=== PATIENT | female | born 1995 | race Caucasian/White ===

== ENCOUNTER 2018-05-05 02:05 | Inpatient (IN) | payer OTHER ==
[2018-05-05] VITALS (22 sets, daily range): BP systolic 90–152; BP diastolic 52–95
[~2018-05-05] VITALS: Ht 165.1 cm; Wt 60.0 kg
[2018-05-05] MEDS ORDERED: [UNRECOGNIZED DRUG - OTHER] IV ONE (02:10)
[2018-05-05] MEDS ORDERED: NORMAL SALINE IV ONE (02:10)
[2018-05-05] MEDS ORDERED: propofol 1000mg/100ml bottle 100 ML IV PRN (02:12)
[2018-05-05 02:31] LABS: ABG BASE EXCESS -5.6 mmol/L (-2.0-3.0); ABG HCO3 19.4 mmol/L (22.0-26.0); ABG OXYGEN SATURATION 99.2 % (95-98); ABG PCO2 (T) 36.9 mmHg (32.0-45.0); ABG PH (T) 7.341 (7.350-7.450); ABG PO2 (T) 223.6 mmHg (83-108); FCOHb 0.7 % (0.5-1.5); FMetHb 0.2 % (0.3-1.12); FO2Hb 98.3 % (94-100); MINUTE VOLUME 9 L/min; PATIENT TEMPERATURE 37.1; PEEP 5 cm H2O; RESPIRATORY RATE 18 b/min; RESPIRATORY RATE (OBSERVED) 20 b/min; TIDAL VOLUME 450 mL; TOTAL HEMOGLOBIN 13.9 G/dl (12.0-16.0)
[2018-05-05] MEDS ORDERED: normal saline 1000ml 1,000 ML IV SCH (02:42)
[2018-05-05] MEDS ORDERED: acetaminophen 325mg tablet PO PRN ×2 (02:45)
[2018-05-05] MEDS ORDERED: potassium Cl 40MEQ/NS 500ml 500 ML IV PRN ×2 (02:45)
[2018-05-05] MEDS ORDERED: morphine 4 MG/ML inj SYRINge IV PRN ×2 (02:45)
[2018-05-05] MEDS ORDERED: potassium Cl 20 mEq SR tablet PO PRN ×2 (02:45)
[2018-05-05] MEDS ORDERED: ipratropium/albuterol 3ml nebule NEB PRN (02:45)
[2018-05-05] MEDS ORDERED: magnesium hydroxide 30ml (MOM) UD suspension PO PRN (02:45)
[2018-05-05] MEDS ORDERED: ondansetron/PF 4mg/2ml inj IV PRN (02:45)
[2018-05-05] MEDS ORDERED: VECuronium br 10mg inj. IV ONE ×4 (02:55→03:15)
[2018-05-05] MEDS ORDERED: UNABLE TO OBTAIN (03:01)
[2018-05-05 03:21] LABS: TRIGLYCERIDES 79 MG/DL (20-135)
[2018-05-05] MEDS: FENTANYL-0.9 % NACL/PF 100 ML IV PRN ×2 (04:01→17:34)
[2018-05-05] MEDS: midazolam 100mg in NS 100ml 100 ML IV PRN ×3 (04:02→23:15)
[2018-05-05] MEDS ORDERED: propofol 1000mg/100ml bottle 100 ML IV ONE ×4 (04:03→22:29)
[2018-05-05] MEDS: propofol 1000mg/100ml bottle 100 ML IV PRN (04:04)
[2018-05-05 04:06] LABS: ABG BASE EXCESS -6.2 mmol/L (-2.0-3.0); ABG HCO3 18.4 mmol/L (22.0-26.0); ABG OXYGEN SATURATION 97.5 % (95-98); ABG PH (T) 7.352 (7.350-7.450); ABG PO2 (T) 103.3 mmHg (83-108); ALLEN'S TEST Positive; FCOHb 0.2 % (0.5-1.5); FMetHb 0.2 % (0.3-1.12); FO2Hb 97.1 % (94-100); MINUTE VOLUME 9 L/min; PATIENT TEMPERATURE 37.1; PEEP 5 cm H2O; RESPIRATORY RATE 18 b/min; RESPIRATORY RATE (OBSERVED) 20 b/min; TIDAL VOLUME 450 mL
[2018-05-05] MEDS: levoFLOXACIN-Levaquin 750MG/D5 150 ML IV SCH (04:11)
[2018-05-05] MEDS: K, MAG and/or Phos replacement - Verify level? MC SCH ×2 (04:21→06:48)
[2018-05-05 06:01] LABS: BASOPHILS % (AUTO) 0.1 % (0-1); EOSINOPHILS # (AUTO) 0.2 X10'3 (0-0.9); HEMATOCRIT 39.2 % (35.0-45.0); HEMOGLOBIN 13.4 g/dl (12.0-16.0); LYMPHOCYTES # (AUTO) 2.5 X10'3 (1.1-4.8); LYMPHOCYTES % (AUTO) 11.2 % (21-51); MEAN CORPUSCULAR HEMOGLOBIN 29.8 PG (27.0-31.0); MEAN CORPUSCULAR HGB CONC 34.2 % (33.0-36.5); MEAN PLATELET VOLUME 10.3 FL (7.4-10.4); MONOCYTES # (AUTO) 1.3 X10'3 (0-0.9); MONOCYTES % (AUTO) 5.9 % (2-12); NEUTROPHILS # (AUTO) 18.3 X10'3 (1.8-7.7); NEUTROPHILS % (AUTO) 81.8 % (42-75); PLATELET COUNT 203 X10'3 (140-440); RED BLOOD COUNT 4.51 X10'6 (4.20-5.60); RED CELL DISTRIBUTION WIDTH 13.4 % (11.5-14.5); WHITE BLOOD COUNT 22.4 X10'3 (4.5-11.0)
[2018-05-05 06:09] LABS: INR 1.1 INR; PARTIAL THROMBOPLASTIN TIME 22 SECONDS (22-32); PROTHROMBIN TIME 11.5 SECONDS (9.0-12.0)
[2018-05-05 06:20] LABS: ALANINE AMINOTRANSFERASE 29 U/L (12-78); ALBUMIN 3.6 G/DL (3.4-5.0); ALKALINE PHOSPHATASE 117 IU/L (46-116); ANION GAP 15 (8-16); ASPARTATE AMINO TRANSFERASE 35 U/L (10-37); BILIRUBIN,TOTAL 0.3 MG/DL (0.1-1.0); BLOOD UREA NITROGEN 16 MG/DL (7-18); BUN/CREATININE RATIO 14.3 (6.6-38.0); CALCIUM 8.5 MG/DL (8.5-10.1); CHLORIDE 113 MMOL/L (99-107); CREATININE 1.12 MG/DL (0.40-0.90); GLUCOSE 102 MG/DL (70-104); MAGNESIUM 1.9 MG/DL (1.5-2.4); PHOSPHORUS 4.3 MG/DL (2.3-4.5); POTASSIUM 3.9 MMOL/L (3.5-5.1); SODIUM 145 MMOL/L (135-145); TOTAL CARBON DIOXIDE 17.5 MMOL/L (24-32); TOTAL PROTEIN 7.1 G/DL (6.4-8.2); eGFR 60 ML/MIN
[2018-05-05] MEDS: Potassium Cl inj 40 MEQ in dextrose 5%-water 980 ML IV SCH ×2 (11:32→12:33)
[2018-05-05] MEDS: pantoprazole 40 MG vial IV SCH (11:35)
[2018-05-05] MEDS: enoxaparin 40mg/0.4ml syringe SQ SCH (11:36)
[2018-05-05 13:38] LABS: CREATINE KINASE 9386 U/L (26-192)
[2018-05-06] VITALS (18 sets, daily range): BP systolic 82–112; BP diastolic 47–70
[2018-05-06] MEDS: Potassium Cl inj 40 MEQ in dextrose 5%-water 980 ML IV SCH ×4 (00:34→20:34)
[2018-05-06] MEDS: FENTANYL-0.9 % NACL/PF 100 ML IV PRN (02:49)
[2018-05-06 04:26] LABS: ABG BASE EXCESS -4.6 mmol/L (-2.0-3.0); ABG HCO3 18.2 mmol/L (22.0-26.0); ABG OXYGEN SATURATION 95.8 % (95-98); ABG PCO2 (T) 27.6 mmHg (32.0-45.0); ABG PH (T) 7.438 (7.350-7.450); ALLEN'S TEST Positive; FCOHb 0.3 % (0.5-1.5); FMetHb 0.1 % (0.3-1.12); FO2Hb 95.4 % (94-100); MINUTE VOLUME 10 L/min; PEEP 5 cm H2O; RESPIRATORY RATE 18 b/min; RESPIRATORY RATE (OBSERVED) 21 b/min; TIDAL VOLUME 450 mL; TOTAL HEMOGLOBIN 12.3 G/dl (12.0-16.0)
[2018-05-06 04:59] LABS: BASOPHILS % (AUTO) 0.3 % (0-1); EOSINOPHILS # (AUTO) 0.2 X10'3 (0-0.9); EOSINOPHILS % (AUTO) 1.5 % (0-6); HEMATOCRIT 35.4 % (35.0-45.0); HEMOGLOBIN 11.8 g/dl (12.0-16.0); LYMPHOCYTES % (AUTO) 25.3 % (21-51); MEAN CORPUSCULAR HEMOGLOBIN 29.3 PG (27.0-31.0); MEAN CORPUSCULAR HGB CONC 33.3 % (33.0-36.5); MONOCYTES # (AUTO) 0.8 X10'3 (0-0.9); MONOCYTES % (AUTO) 6.6 % (2-12); NEUTROPHILS # (AUTO) 7.9 X10'3 (1.8-7.7); NEUTROPHILS % (AUTO) 66.3 % (42-75); PLATELET COUNT 159 X10'3 (140-440); RED BLOOD COUNT 4.02 X10'6 (4.20-5.60); WHITE BLOOD COUNT 11.9 X10'3 (4.5-11.0)
[2018-05-06 05:04] LABS: ALANINE AMINOTRANSFERASE 45 U/L (12-78); ALBUMIN 2.9 G/DL (3.4-5.0); ALBUMIN/GLOBULIN RATIO 0.9 (1.1-1.5); ALKALINE PHOSPHATASE 94 IU/L (46-116); ANION GAP 6 (8-16); ASPARTATE AMINO TRANSFERASE 84 U/L (10-37); BILIRUBIN,TOTAL 0.5 MG/DL (0.1-1.0); BLOOD UREA NITROGEN 10 MG/DL (7-18); CALCIUM 8.5 MG/DL (8.5-10.1); CHLORIDE 109 MMOL/L (99-107); CREATININE 0.77 MG/DL (0.40-0.90); GLUCOSE 88 MG/DL (70-104); MAGNESIUM 1.9 MG/DL (1.5-2.4); PHOSPHORUS 2.6 MG/DL (2.3-4.5); POTASSIUM 4.5 MMOL/L (3.5-5.1); SODIUM 137 MMOL/L (135-145); TOTAL CARBON DIOXIDE 21.6 MMOL/L (24-32); eGFR > 90 ML/MIN
[2018-05-06] MEDS: midazolam 100mg in NS 100ml 100 ML IV PRN (06:21)
[2018-05-06] MEDS: K, MAG and/or Phos replacement - Verify level? MC SCH (08:00)
[2018-05-06] MEDS ORDERED: mineral oil/petrolatum ophthal oint EACHEYE SCH (08:00)
[2018-05-06] MEDS: enoxaparin 40mg/0.4ml syringe SQ SCH (08:34)
[2018-05-06] MEDS: pantoprazole 40 MG vial IV SCH (08:34)
[2018-05-06] MEDS: levoFLOXACIN-Levaquin 750MG/D5 150 ML IV SCH (08:35)
[2018-05-06] MEDS: ziprasidone IM 20mg inj **IM only IM SCH (09:32)
[2018-05-06] MEDS: propofol 1000mg/100ml bottle 100 ML IV PRN (09:44)
[2018-05-06] MEDS ORDERED: dexmedetomidin/NS 400mcg/100ml 100 ML IV SCH (11:10)
[2018-05-06] MEDS: QUEtiapine 25mg tablet PO SCH ×2 (11:22→20:00)
[2018-05-06] MEDS ORDERED: diphenhydrAMINE 50 mg/ml inj IM ONE (22:20)
[2018-05-06] MEDS ORDERED: LORazepam 2 mg/ml vial IM ONE (22:20)
[2018-05-06] MEDS ORDERED: OLANZapine **IM** 10 mg inj. IM PRN (22:25)
[2018-05-06] MEDS ORDERED: ondansetron 4mg rapidly disintigrating tab PO PRN ×2 (22:50→22:55)
[2018-05-07] MEDS ORDERED: LORazepam 2 mg/ml vial ONE ×2 (01:03→01:17)
[2018-05-07] MEDS: chlorproMAZINE 25mg/ml inj. IV ONE ×2 (01:35→01:46)
[2018-05-07] MEDS ORDERED: LORazepam 2 mg/ml vial IV ONE (01:35)
[2018-05-07] MEDS ORDERED: LORazepam 2 mg/ml vial IM ONE (01:35)
[2018-05-07] MEDS: Potassium Cl inj 40 MEQ in dextrose 5%-water 980 ML IV SCH ×4 (03:14→23:14)
[2018-05-07] MEDS: ziprasidone IM 20mg inj **IM only IM SCH ×2 (07:07→08:00)
[2018-05-07] MEDS: QUEtiapine 25mg tablet PO SCH ×2 (08:00→10:37)
[2018-05-07] MEDS: pantoprazole 40 MG vial IV SCH (08:00)
[2018-05-07] MEDS: enoxaparin 40mg/0.4ml syringe SQ SCH (08:00)
[2018-05-07] MEDS: levoFLOXACIN-Levaquin 750MG/D5 150 ML IV SCH (08:00)
[2018-05-07] MEDS: K, MAG and/or Phos replacement - Verify level? MC SCH (08:00)
[2018-05-07 11:02] VITALS: BP 106/72
[2018-05-07 11:05] LABS: BASOPHILS % (AUTO) 0 % (0-1); EOSINOPHILS # (AUTO) 0.2 X10'3 (0-0.9); EOSINOPHILS % (AUTO) 1.5 % (0-6); HEMATOCRIT 33.5 % (35.0-45.0); HEMOGLOBIN 11.5 g/dl (12.0-16.0); LYMPHOCYTES # (AUTO) 1.1 X10'3 (1.1-4.8); LYMPHOCYTES % (AUTO) 7.9 % (21-51); MEAN CORPUSCULAR HEMOGLOBIN 29.8 PG (27.0-31.0); MEAN CORPUSCULAR HGB CONC 34.3 % (33.0-36.5); MEAN PLATELET VOLUME 9.5 FL (7.4-10.4); MONOCYTES # (AUTO) 0.5 X10'3 (0-0.9); MONOCYTES % (AUTO) 3.8 % (2-12); NEUTROPHILS # (AUTO) 12.1 X10'3 (1.8-7.7); NEUTROPHILS % (AUTO) 86.8 % (42-75); PLATELET COUNT 179 X10'3 (140-440); RED BLOOD COUNT 3.86 X10'6 (4.20-5.60); RED CELL DISTRIBUTION WIDTH 13.4 % (11.5-14.5); WHITE BLOOD COUNT 13.9 X10'3 (4.5-11.0)
[2018-05-07 11:37] LABS: ALANINE AMINOTRANSFERASE 87 U/L (12-78); ALBUMIN 3.4 G/DL (3.4-5.0); ALBUMIN/GLOBULIN RATIO 0.9 (1.1-1.5); ALKALINE PHOSPHATASE 108 IU/L (46-116); ANION GAP 9 (8-16); ASPARTATE AMINO TRANSFERASE 203 U/L (10-37); BILIRUBIN,TOTAL 0.7 MG/DL (0.1-1.0); BLOOD UREA NITROGEN 7 MG/DL (7-18); BUN/CREATININE RATIO 10.6 (6.6-38.0); CALCIUM 8.9 MG/DL (8.5-10.1); CHLORIDE 105 MMOL/L (99-107); CREATININE 0.66 MG/DL (0.40-0.90); GLUCOSE 89 MG/DL (70-104); MAGNESIUM 1.7 MG/DL (1.5-2.4); PHOSPHORUS 4.2 MG/DL (2.3-4.5); SODIUM 138 MMOL/L (135-145); TOTAL CARBON DIOXIDE 23.6 MMOL/L (24-32); TOTAL PROTEIN 7.1 G/DL (6.4-8.2); eGFR > 90 ML/MIN
[2018-05-07] MEDS ORDERED: LORazepam 2 mg/ml vial IV PRN (11:45)
[2018-05-07 12:00] VITALS: BP 101/57
[2018-05-07 13:00] VITALS: BP 102/58
[2018-05-07] MEDS ORDERED: OLANZapine **IM** 10 mg inj. IM PRN (13:00)
[2018-05-07] MEDS ORDERED: LORazepam 2 mg/ml vial IM PRN (13:35)
[2018-05-07 15:00] VITALS: BP 98/61
[2018-05-07 17:00] VITALS: BP 113/67
[2018-05-07] MEDS: LORazepam 2 mg/ml vial IM PRN (19:32)
[2018-05-08] MEDS: Potassium Cl inj 40 MEQ in dextrose 5%-water 980 ML IV SCH (05:54)
[2018-05-08] MEDS: levoFLOXACIN-Levaquin 750MG/D5 150 ML IV SCH (06:41)
[2018-05-08] MEDS: pantoprazole 40 MG vial IV SCH (06:42)
[2018-05-08] MEDS: K, MAG and/or Phos replacement - Verify level? MC SCH (06:43)
[2018-05-08] MEDS: QUEtiapine 25mg tablet PO SCH ×2 (08:00→19:44)
[2018-05-08] MEDS: enoxaparin 40mg/0.4ml syringe SQ SCH (08:00)
[2018-05-08 08:49] VITALS: BP 105/61
[2018-05-08] MEDS: OLANZapine **IM** 10 mg inj. IM SCH ×3 (11:55→20:03)
[2018-05-08] MEDS: LORazepam 2 mg/ml vial IM PRN ×3 (12:04→22:07)
[2018-05-08] MEDS ORDERED: LORA2TAB96 PO (13:37)
[2018-05-08] MEDS ORDERED: DIPH25CA83 PO (13:37)
[2018-05-08] MEDS: diphenhydrAMINE 25mg capsule PO SCH (20:04)
[2018-05-09] MEDS: LORazepam 2 mg/ml vial IM PRN ×2 (00:59→07:42)
[2018-05-09] MEDS: OLANZapine **IM** 10 mg inj. IM SCH (08:00)
[2018-05-09] MEDS ORDERED: ibuprofen 200mg tablet PO PRN (08:25)
[2018-05-09] MEDS ORDERED: LORazepam 1 MG tablet PO ONE (08:25)
[2018-05-09] MEDS: OLANZapine **IM** 10 mg inj. IM PRN ×2 (16:03→21:06)
[2018-05-09 17:11] VITALS: BP 99/47
[2018-05-09] MEDS: diphenhydrAMINE 25mg capsule PO SCH (20:38)
[2018-05-09] MEDS ORDERED: LORazepam 1 MG tablet PO SCH (21:00)
[2018-05-10 00:28] VITALS: BP 96/59
[2018-05-10] MEDS: OLANZapine **IM** 10 mg inj. IM PRN (10:18)
[2018-05-10] MEDS ORDERED: LORazepam 1 MG tablet PO ONE (12:20)
== END 2018-05-10 13:40 | disposition home or self-care (01) | DRG 885 ==
LOC: ER 02:07 → ICU 2S 02:42 → CMPBEDREQ 03:46
PROVIDERS: ADMIT Internal Medicine Critical Care Medicine; ATTEND Internal Medicine Critical Care Medicine
PROC: 5A1935Z Respiratory Ventilation, Less than 24 Consecutive Hours (ICD-10-PCS; principal; 2018-05-05)
PROC: 0BH17EZ Insertion of Endotracheal Airway into Trachea, Via Natural or Artificial Opening (ICD-10-PCS; 2018-05-05)
DX: F20.9 Schizophrenia, unspecified (principal); F31.9 Bipolar disorder, unspecified; F12.10 Cannabis abuse, uncomplicated; Z72.89 Other problems related to lifestyle; M54.5 Low back pain; Z88.8 Allergy status to other drugs, medicaments and biological substances; Z91.040 Latex allergy status; G89.29 Other chronic pain
CPT/HCPCS: 36415; 36600; 70450; 71045; 80053; 82533; 82550; 82803; 82948; 83605; 83735; 84100; 84439; 84443; 84478; 85018; 85025; 85610; 85730; 87040; 87070; 94002; 94003; 94760; 99291; A6213; A6250; C9113; J1200; J1650; J1956; J2060; J2250; J2704; J3230; J3480; J3486; J3490; J7030; J7070; Q0163